=== PATIENT | female | born 1985 | race Caucasian/White ===

== ENCOUNTER 2019-05-16 17:11 | Emergency (ER) | payer BC, OTHER ==
[2019-05-16] MEDS ORDERED: MAGNESIUM SULFATE INJ 1 GM/2 ML VIAL ONE (17:49)
[2019-05-16] MEDS ORDERED: SODIUM CHLORIDE 0.9% 100ML 100 ML IVPB ONE (17:50)
--- NOTE | 2019-05-16 17:56 | ED.PDOC ---
History of Present Illness - General Chief Complaint: Headache Stated Complaint: Severe headache Time Seen by Provider: 05/16/19 17:43 Source: patient, RN notes reviewed, Vital Signs reviewed Exam Limitations: no limitations - History of Present Illness Initial Comments: Patient is a 33-year-old white female who presents with complaints of a migraine headache. This started approximately 5 hours ago. It is 10/10 in intensity, throbbing in nature. Worse with loud noises or light, better sitting quietly in a dark room. Patient has mild vision disturbances consistent with blurry vision. Patient does not have a migraine or. Patient states that she got lightheaded and may have passed out but she does not believe she was out for more than a second. Patient denies any chest pain, shortness of breath, diarrhea. Patient does have some nausea but no vomiting. The headache is continuous and worsening. Timing/Duration: 4-6 hours Quality: severe, constant, throbbing Head Injury Location: frontal, occipital Recent Head Trauma: frequent headaches, chronic headaches Associated Symptoms: fatigue, loss of consciousness, nausea/vomiting - Nausea only Allergies/Adverse Reactions: Allergies NO KNOWN ALLERGY Allergy (Verified 05/16/19 17:45) Home Medications: Ambulatory Orders Prochlorperazine Tab [Compazine Tab] 10 mg PO Q6H PRN #12 tab 05/16/19 Review of Systems - Review of Systems Constitutional: States: see HPI, malaise. Denies: chills, fever, weakness EENTM: States: see HPI, blurred vision. Denies: eye pain Respiratory: States: no symptoms reported. Denies: cough, short of breath Cardiology: States: no symptoms reported, syncope - Transient only lasted 1 to 2 seconds.. Denies: chest pain, palpitations Gastrointestinal/Abdominal: States: see HPI, nausea. Denies: diarrhea, vomiting Genitourinary: States: no symptoms reported Skin: States: no symptoms reported Neurological: States: see HPI, headache. Denies: numbness, paresthesia, tingling, weakness Endocrine: States: no symptoms reported Hematologic/Lymphatic: States: no symptoms reported All other Systems: Reviewed and Negative Past Medical History (General) - Patient Medical History Hx Stroke: No Hx of COPD: No Hx Cardiac Disorders: No Hx Hypertension: No Hx Diabetes: No Hx Cancer: No Surgical History: other - Vaccination History Hx Tetanus, Diphtheria Vaccination: Yes Hx Influenza Vaccination: Yes - Social History Hx Tobacco Use: Yes Hx Alcohol Use: No Hx Substance Use: No Hx Substance Use Treatment: No Hx Depression: No Family Medical History - Family History Mother Family History: No Known Living Status: Still Living Physical Exam - Physical Exam General Appearance: Alert, Anxious, Well Developed, Well Groomed, Well Nourished Eyes, Ears, Nose, Throat Exam: PERRL/EOMI, normal ENT inspection, pharynx normal - Except for dry mucous membranes Neck: non-tender, full range of motion, supple, normal inspection, trachea midline Cardiovascular/Chest: normal peripheral pulses, no edema, no gallop, no JVD, no murmur, tachycardia Respiratory: chest non-tender, lungs clear, normal breath sounds, no respiratory distress, no accessory muscle use Gastrointestinal/Abdominal: normal bowel sounds, non tender, soft, no organomegaly, no pulsatile mass Back Exam: normal inspection, no CVA tenderness, no vertebral tenderness Extremity: normal range of motion, non-tender, normal inspection Mental Status: alert, oriented x 3 rcp Exam: normal hearing, normal speech, PERRL Coordination/Gait: normal gait Motor/Sensory: no motor deficit, no sensory deficit, no pronator drift Skin Exam: warm/dry, normal color Lymphatic: no adenopathy Progress - Progress Progress: Differential diagnosis: Migraine headache, tension headache, meningitis, among others. 05/16/19 18:55 Patient's headache is completely resolved with the IV pain medications. Plan on discharge home at this time. I will discharge the patient home with a prescription for Compazine. I discussed this plan of care with the patient she voices understanding and agreement. I doubt patient has meningitis as she has no meningeal signs and headache resolved with nonnarcotic pain medicines. Juan Miguel Huff M.D. #[id number] Departure - Departure Clinical Impression: Migraine Qualifiers: Migraine type: without aura Status migrainosus presence: without status migrainosus Intractability: not intractable Qualified Code(s): G43.009 - Migraine without aura, not intractable, without status migrainosus Time of Disposition: 18:57 Disposition: Discharge to Home or Self Care Condition: Good Departure Forms: ED Discharge - Pt. Copy, Patient Portal Self Enrollment Instructions: DI for Headache Referrals: Maxime Shearer MD [Primary Care Provider] - 1-2 Weeks Prescriptions: Prochlorperazine Tab [Compazine Tab] 10 mg PO Q6H PRN #12 tab PRN Reason: Headache Or Mild Pain Home Medications: Ambulatory Orders Prochlorperazine Tab [Compazine Tab] 10 mg PO Q6H PRN #12 tab 05/16/19
[2019-05-16] MEDS: KETOROLAC TROMETHAMINE INJ 30 MG/ML VIAL IV ONE (18:05)
[2019-05-16] MEDS: PROCHLORPERAZINE INJ 10 MG/2 ML VIAL IV ONE (18:06)
[2019-05-16] MEDS: MAGNESIUM SULFATE INJ 1 GM in SODIUM CHLORIDE 0.9% 100ML 100 ML IVPB ONE (18:06)
[2019-05-16] MEDS: SODIUM CHLORIDE 0.9% 1000ML 1,000 ML IVS ONE (18:07)
[2019-05-16 19:12] VITALS: BP 107/65; TEMP 98.1; O2SAT 95
== END 2019-05-16 19:05 | disposition home or self-care (01) ==
LOC: ER 17:11
DX: G43.009 Migraine without aura, not intractable, without status migrainosus (principal); R42 Dizziness and giddiness; Z87.891 Personal history of nicotine dependence
CPT/HCPCS: J0780; J1885; J3475; J7030; J7050

== ENCOUNTER → 2020-02-19 | Outpatient (CLI) | payer BC | LOC: YCFC.O 15:51 | PROVIDERS: ATTEND Family Medicine | DX: Z03.818 Encounter for observation for suspected exposure to other biological agents ruled out (principal); Z20.828 Contact with and (suspected) exposure to other viral communicable diseases ==

== ENCOUNTER → 2020-05-08 | Outpatient (CLI) | payer BC | LOC: YCFC.O 10:00 | PROVIDERS: ATTEND Nurse Practitioner Family | DX: Z20.828 Contact with and (suspected) exposure to other viral communicable diseases (principal); R05 Cough ==

== ENCOUNTER → 2020-05-13 | Outpatient (CLI) | payer BC | LOC: YCFC.O 09:43 | PROVIDERS: ATTEND Nurse Practitioner Family | DX: Z20.828 Contact with and (suspected) exposure to other viral communicable diseases (principal) ==